=== PATIENT | female | born 1970 ===

== ENCOUNTER 2021-04-23 19:38 | Emergency (ER) | payer SELFPAY ==
[2021-04-23 20:11] VITALS: BP 118/80; PULSE 69; RESP 15; TEMP 36.6; O2SAT 97
--- NOTE | 2021-04-23 21:43 | PC.NURSE ---
Pt states that she wants to leave and not be seen in the ER tonight. states she has been able to tolerate PO intake with no vomiting.
== END 2021-04-23 21:58 | disposition left against medical advice (07) ==
DX: R09.89 Other specified symptoms and signs involving the circulatory and respiratory systems (principal)
CPT/HCPCS: 99199